=== PATIENT | female | born 1985 | race Hispanic/Latino ===

== ENCOUNTER 2024-10-22 09:57 | Outpatient (CLI) | payer BC | END 2024-10-22 09:58 | disposition home or self-care (01) | LOC: CSHMAMMO 09:57 | PROVIDERS: ATTEND Nurse Practitioner Family | DX: Z08 Encounter for follow-up examination after completed treatment for malignant neoplasm (principal); Z85.3 Personal history of malignant neoplasm of breast | CPT/HCPCS: 77066; G0279 ==